=== PATIENT | male | born 1955 | race Caucasian/White ===

== ENCOUNTER 2018-09-24 08:52 | Outpatient (CLI) | payer BC ==
--- NOTE | 2018-09-24 10:23 | RAD ---
PA AND LATERAL CHEST: HISTORY: Cough. COMPARISON: 02/12/2015 FINDINGS: Heart size is within normal limits with postop sternotomy changes. There are some infiltrates seen w ithin the right lung base, slightly nodular in appearance, but still felt most likely to be pneumonic in nature. A follow-up chest film would be recommended. IMPRESSION: Infiltrate within the right lung base. POS: [facility]
== END 2018-09-24 08:53 | disposition home or self-care (01) ==
LOC: RAD-FRANK 08:52
PROVIDERS: ATTEND Nurse Practitioner Family
DX: R05 Cough (principal); R91.8 Other nonspecific abnormal finding of lung field
CPT/HCPCS: 71046

== ENCOUNTER 2018-10-11 07:30 | Outpatient (CLI) | payer BC ==
--- NOTE | 2018-10-11 08:57 | RAD ---
CHEST 2 VIEWS: COMPARISON: 09/24/2018. HISTORY: Followup pneumonia. FINDINGS: Sternotomy wires are noted. There is atherosclerosis of the aorta. Normal cardiac silhouette. The pulmonary vessels and hilum are normal. Costophrenic angles are clear. No consolidation or mass. N o pneumothorax or osseous abnormalities. IMPRESSION: 1. No acute cardiopulmonary process. 2. Atherosclerosis. POS: [facility]
== END 2018-10-11 07:31 | disposition home or self-care (01) ==
LOC: RAD-FRANK 07:30
PROVIDERS: ATTEND Nurse Practitioner Family
DX: J18.0 Bronchopneumonia, unspecified organism (principal); I70.0 Atherosclerosis of aorta
CPT/HCPCS: 71046

== ENCOUNTER 2022-09-11 09:16 | Outpatient (CLI) | payer BC | END 2022-09-11 09:17 | disposition home or self-care (01) | LOC: RAD-FRANK 09:16 | PROVIDERS: ATTEND Nurse Practitioner Family | DX: M54.2 Cervicalgia (principal); M47.812 Spondylosis without myelopathy or radiculopathy, cervical region; M46.02 Spinal enthesopathy, cervical region | CPT/HCPCS: 72040 ==